=== PATIENT | male | born 1980 | race Caucasian/White ===

== ENCOUNTER 2025-05-26 06:22 | Day surgery (SDC) | payer BC, SELFPAY | END 2025-05-26 09:53 | disposition home or self-care (01) | LOC: GI 06:22 | PROVIDERS: ATTENDING PHYSICIAN Internal Medicine Gastroenterology | DX: Z12.11 Encounter for screening for malignant neoplasm of colon (principal); K57.30 Diverticulosis of large intestine without perforation or abscess without bleeding; K64.8 Other hemorrhoids; C7A.8 Other malignant neuroendocrine tumors | CPT/HCPCS: 45385; 45380; 88305; 88341; 88342 ==